=== PATIENT | male | born 1970 | race Caucasian/White ===

== ENCOUNTER 2016-04-24 10:45 | Emergency (ER) | payer OTHER ==
[~2016-04-24] VITALS: Ht 182.9 cm; Wt 111.0 kg
[~2016-04-24 10:45] MED LIST: ADDERALL XR 2020 MG PO; CLINDAMYCIN HC300 MG PO; DESYREL100 MG PO; LAMICTAL200 MG PO; MOTRIN600 MG PO; NAPROSYN500 MG PO; NOHOMEMEDS; NORCO 5/3251 TABLET PO; TRILAFON4 MG PO; TYLENOL EXTRA500 MG PO; ULTRAM50 MG PO
[2016-04-24] MEDS ORDERED: ULTRAM50 MG PO (14:12)
[2016-04-24 15:13] VITALS: BP 140/76
== END 2016-04-24 15:13 | disposition home or self-care (01) ==
LOC: EXP 10:45 → EME 10:45 → EXP 15:13
DX: S93.402A Sprain of unspecified ligament of left ankle, initial encounter (principal); W20.8XXA Other cause of strike by thrown, projected or falling object, initial encounter; Y93.89 Activity, other specified; Y99.8 Other external cause status
CPT/HCPCS: 73610; 73630; 99281; 99284

== ENCOUNTER 2017-08-20 14:01 | Emergency (ER) | payer OTHER ==
[~2017-08-20] VITALS: Ht 182.9 cm; Wt 121.0 kg
[2017-08-20 14:06] VITALS: BP 151/110
[2017-08-20] MEDS ORDERED: MOTRIN600 MG PO (15:17)
[2017-08-20] MEDS ORDERED: FLEXERIL10 MG PO (15:17)
== END 2017-08-20 15:26 | disposition home or self-care (01) ==
LOC: EME 14:01
DX: M19.012 Primary osteoarthritis, left shoulder (principal)
CPT/HCPCS: 73030; 99281; 99284; J1885